=== PATIENT | female | born 1940 | race Caucasian/White ===

== ENCOUNTER 2019-05-24 17:09 | Inpatient (IN) | payer MEDICARE, OTHER ==
[~2019-05-24] VITALS: Ht 175.3 cm; Wt 56.8 kg
--- NOTE | 2019-05-24 17:26 | NUR ---
CAREGIVER: [phone]
[2019-05-24] MEDS ORDERED: ipratropium/albuterol 3ml nebule NEB ONE (17:45)
[2019-05-24] MEDS ORDERED: predniSONE 20 mg tablet PO ONE (17:45)
--- NOTE | 2019-05-24 17:49 | NUR ---
pt. was covered in feces, pt. is being cleaned with soap and water and removing feces in the hands, perineum area.
[2019-05-24] MEDS ORDERED: normal saline 1000ML IV soln IV ONE (18:10)
[2019-05-24 18:16] LABS: BASOPHILS # (AUTO) 0.1 X10'3 (0-0.2); BASOPHILS % (AUTO) 1.1 % (0-1); EOSINOPHILS # (AUTO) 0.1 X10'3 (0-0.9); EOSINOPHILS % (AUTO) 1.4 % (0-6); HEMATOCRIT 22.8 % (35.0-45.0); HEMOGLOBIN 7.7 g/dl (12.0-16.0); LYMPHOCYTES # (AUTO) 1.4 X10'3 (1.1-4.8); MEAN CORPUSCULAR HEMOGLOBIN 27.6 PG (27.0-31.0); MEAN CORPUSCULAR HGB CONC 33.9 g/dL (33.0-36.5); MEAN CORPUSCULAR VOLUME 81.6 FL (78-98); MEAN PLATELET VOLUME 6.9 FL (7.4-10.4); MONOCYTES # (AUTO) 0.3 X10'3 (0-0.9); MONOCYTES % (AUTO) 3.2 % (2-12); NEUTROPHILS # (AUTO) 6.9 X10'3 (1.8-7.7); NEUTROPHILS % (AUTO) 78.3 % (42-75); PLATELET COUNT 346 X10'3 (140-440); RED CELL DISTRIBUTION WIDTH 17.6 % (11.5-14.5); WHITE BLOOD COUNT 8.8 X10'3 (4.5-11.0)
[2019-05-24 18:17] LABS: ALBUMIN 2.3 G/DL (3.4-5.0); ALKALINE PHOSPHATASE 89 IU/L (46-116); ANION GAP 9 (8-16); CALCIUM 7.9 MG/DL (8.5-10.1); CHLORIDE 104 MMOL/L (99-107); CREATININE 1.45 MG/DL (0.40-0.90); POTASSIUM 3.8 MMOL/L (3.5-5.1); SODIUM 141 MMOL/L (135-145); TOTAL CARBON DIOXIDE 27.9 MMOL/L (24-32); eGFR 35 ML/MIN
[2019-05-24 18:21] LABS: ALANINE AMINOTRANSFERASE < 6 U/L (12-78); ALBUMIN/GLOBULIN RATIO 0.4 (1.1-1.5); ASPARTATE AMINO TRANSFERASE 16 U/L (10-37); BILIRUBIN,TOTAL 0.2 MG/DL (0.1-1.0); BLOOD UREA NITROGEN 20 MG/DL (7-18); BUN/CREATININE RATIO 13.8 (6.6-38.0); GLUCOSE 79 MG/DL (70-104); TOTAL PROTEIN 8.1 G/DL (6.4-8.2)
[2019-05-24 18:30] LABS: CLARITY,URINE CLOUDY (Clear); COLOR,URINE AMBER (Yellow); GLUCOSE, URINE NEGATIVE (Neg); KETONES,URINE TRACE mg/dl (Neg); LEUKOCYTE ESTERASE ,URINE SMALL (Neg); NITRITES, URINE POSITIVE (Neg); OCCULT BLOOD,URINE LARGE (Neg); PH,URINE 7.5 (4.8-8.0); PROTEIN,URINE 100 mg/dl (Neg)
[2019-05-24 18:34] LABS: UA COLLECTION TYPE STRAIGHT CATH
[2019-05-24 18:36] LABS: BACTERIA,URINE 4+ /HPF (Neg); RBC,URINE TNTC /HPF (0-2)
[2019-05-24] MEDS ORDERED: CefTRIAXone/D5W-Rocephin 1gm 50 ML IV STA (18:36)
[2019-05-24] MEDS ORDERED: azithromycin/NS 500mg/250ml 250 ML IV STA (18:36)
[2019-05-24 18:37] LABS: AMORPHOUS PHOSPHATES 1+; MUCUS STRANDS FEW /LPF (Neg); SQUAMOUS EPITHELIAL CELL,UR MODERATE /LPF (FEW)
[2019-05-24 18:38] LABS: WBC CLUMPS,URINE FEW /HPF (NEGATIVE)
[2019-05-24] MEDS ORDERED: NO HOME MEDS (19:27)
[2019-05-24] MEDS ORDERED: magnesium hydroxide 30ml (MOM) UD suspension PO PRN (19:55)
[2019-05-24] MEDS ORDERED: ondansetron/PF 4mg/2ml inj IV PRN (19:55)
[2019-05-24] MEDS ORDERED: acetaminophen 325mg tablet PO PRN (19:55)
[2019-05-24] MEDS ORDERED: potassium CL 10mEq/100ml bag 100 ML IV PRN ×2 (19:55)
[2019-05-24] MEDS ORDERED: magnesium 4gm in 100ml NS 100 ML IV PRN (19:55)
[2019-05-24] MEDS ORDERED: potassium Cl 20 mEq SR tablet PO PRN ×2 (19:55)
[2019-05-24] MEDS ORDERED: mag hydrox/Alum hydrox/simeth 30ml oral suspension PO PRN (19:55)
[2019-05-24] MEDS ORDERED: HYDROcodone/acetaminophen 5mg/325mg tablet PO PRN (19:55)
[2019-05-24] MEDS ORDERED: magnesium 2GM in 50ml NS 50 ML IV PRN (19:55)
[2019-05-24] MEDS: K and/or MAG REPLACEMENT MC SCH (20:00)
[2019-05-24] MEDS: heparin, porcine 5000 units/ml vial SQ SCH (20:25)
--- NOTE | 2019-05-24 20:30 | NUR ---
CAREGIVER NAME ALEXANDRIA CALLED TO ASK HOW PT IS DOING. SHE REQUESTED THAT WE TELL THE PATIENT SHE CALLED AND TO CALL HER AT [phone]
--- NOTE | 2019-05-24 21:27 | NUR ---
Patient in room ED 3. I have received report from PAULETTE HERNANDEZ and had the opportunity to ask questions and assume patient care.
[2019-05-25] VITALS (9 sets, daily range): BP systolic 123–163; BP diastolic 65–84
[2019-05-25 05:19] LABS: BASOPHILS % (AUTO) 0.3 % (0-1); EOSINOPHILS % (AUTO) 0.1 % (0-6); LYMPHOCYTES % (AUTO) 7.4 % (21-51); MEAN CORPUSCULAR HEMOGLOBIN 26.7 PG (27.0-31.0); MEAN CORPUSCULAR HGB CONC 32.5 g/dL (33.0-36.5); MEAN CORPUSCULAR VOLUME 82.1 FL (78-98); MEAN PLATELET VOLUME 7.1 FL (7.4-10.4); MONOCYTES # (AUTO) 0.2 X10'3 (0-0.9); MONOCYTES % (AUTO) 1.1 % (2-12); NEUTROPHILS # (AUTO) 12.6 X10'3 (1.8-7.7); NEUTROPHILS % (AUTO) 91.1 % (42-75); PLATELET COUNT 298 X10'3 (140-440); RED BLOOD COUNT 2.45 X10'6 (4.20-5.60); RED CELL DISTRIBUTION WIDTH 17.6 % (11.5-14.5); WHITE BLOOD COUNT 13.8 X10'3 (4.5-11.0)
[2019-05-25 05:30] LABS: HEMOGLOBIN 6.5 g/dl (12.0-16.0)
[2019-05-25 05:31] LABS: HEMATOCRIT 20.1 % (35.0-45.0)
[2019-05-25 05:37] LABS: ALANINE AMINOTRANSFERASE 6 U/L (12-78); ALBUMIN/GLOBULIN RATIO 0.4 (1.1-1.5); ALKALINE PHOSPHATASE 76 IU/L (46-116); ANION GAP 8 (8-16); ASPARTATE AMINO TRANSFERASE 23 U/L (10-37); BILIRUBIN,TOTAL 0.2 MG/DL (0.1-1.0); BLOOD UREA NITROGEN 19 MG/DL (7-18); BUN/CREATININE RATIO 14.1 (6.6-38.0); CALCIUM 7.3 MG/DL (8.5-10.1); CHLORIDE 104 MMOL/L (99-107); CREATININE 1.35 MG/DL (0.40-0.90); MAGNESIUM 1.4 MG/DL (1.5-2.4); POTASSIUM 3.9 MMOL/L (3.5-5.1); SODIUM 137 MMOL/L (135-145); TOTAL CARBON DIOXIDE 24.6 MMOL/L (24-32); TOTAL PROTEIN 7.5 G/DL (6.4-8.2); eGFR 38 ML/MIN
[2019-05-25 05:38] LABS: GLUCOSE 115 MG/DL (70-104)
--- NOTE | 2019-05-25 06:10 | NUR ---
Patient in room [facility]. I have received report from Francesca Harman RN and had the opportunity to ask questions and assume patient care.
--- NOTE | 2019-05-25 06:26 | NUR ---
Problems reprioritized. Patient report given, questions answered & plan of care reviewed with PAULETTE Smiley.
[2019-05-25] MEDS: K and/or MAG REPLACEMENT MC SCH ×2 (06:57→19:53)
[2019-05-25] MEDS ORDERED: levoTHYROXINE 75mcg tablet PO SCH (07:00)
[2019-05-25] MEDS: magnesium Cl slow-release 64mg tablet PO PRN ×2 (08:14→16:55)
[2019-05-25] MEDS: heparin, porcine 5000 units/ml vial SQ SCH ×2 (08:14→20:03)
[2019-05-25] MEDS: predniSONE 5mg tablet PO SCH (08:15)
[2019-05-25] MEDS: CefTRIAXone/D5W-Rocephin 1gm 50 ML IV SCH (08:44)
[2019-05-25] MEDS ORDERED: pneumococcal 23-VAL P-sac vacc 25 mcg/0.5ml vial IMVAC ONE (10:00)
[2019-05-25] MEDS: normal saline 1000ml 1,000 ML IV SCH (16:32)
[2019-05-25 17:19] LABS: % IRON SATURATION 57 % (11-46); IRON 114 UG/DL (49-151); TOTAL IRON BINDING CAPACITY 201 UG/DL (259-388)
[2019-05-25 17:36] LABS: HEMATOCRIT 22.4 % (35.0-45.0); HEMOGLOBIN 7.8 g/dl (12.0-16.0); MEAN CORPUSCULAR HEMOGLOBIN 28.6 PG (27.0-31.0); MEAN CORPUSCULAR HGB CONC 34.7 g/dL (33.0-36.5); MEAN CORPUSCULAR VOLUME 82.5 FL (78-98); MEAN PLATELET VOLUME 7.2 FL (7.4-10.4); PLATELET COUNT 301 X10'3 (140-440); RED BLOOD COUNT 2.72 X10'6 (4.20-5.60); RED CELL DISTRIBUTION WIDTH 16.1 % (11.5-14.5); WHITE BLOOD COUNT 12.1 X10'3 (4.5-11.0)
--- NOTE | 2019-05-25 18:10 | NUR ---
Problems reprioritized. Patient report given, questions answered & plan of care reviewed with PAULETTE Jaeger & PAULETTE Greer.
[2019-05-25] MEDS: lactobacillus rhamnosus 10,000 MMU CELLS/CAPSULE PO SCH (20:01)
[2019-05-26] VITALS: BP 147/66
[2019-05-26 05:28] LABS: BASOPHILS % (AUTO) 0.4 % (0-1); EOSINOPHILS # (AUTO) 0.1 X10'3 (0-0.9); EOSINOPHILS % (AUTO) 1.4 % (0-6); HEMATOCRIT 23.7 % (35.0-45.0); HEMOGLOBIN 8.1 g/dl (12.0-16.0); LYMPHOCYTES # (AUTO) 2.2 X10'3 (1.1-4.8); LYMPHOCYTES % (AUTO) 25.8 % (21-51); MEAN CORPUSCULAR HEMOGLOBIN 28.3 PG (27.0-31.0); MEAN CORPUSCULAR HGB CONC 34.3 g/dL (33.0-36.5); MEAN CORPUSCULAR VOLUME 82.4 FL (78-98); MEAN PLATELET VOLUME 7.2 FL (7.4-10.4); MONOCYTES # (AUTO) 0.4 X10'3 (0-0.9); MONOCYTES % (AUTO) 5.1 % (2-12); NEUTROPHILS # (AUTO) 5.8 X10'3 (1.8-7.7); NEUTROPHILS % (AUTO) 67.3 % (42-75); PLATELET COUNT 308 X10'3 (140-440); RED BLOOD COUNT 2.88 X10'6 (4.20-5.60); RED CELL DISTRIBUTION WIDTH 16.9 % (11.5-14.5); WHITE BLOOD COUNT 8.6 X10'3 (4.5-11.0)
[2019-05-26 05:55] LABS: ALANINE AMINOTRANSFERASE 7 U/L (12-78); ALBUMIN/GLOBULIN RATIO 0.4 (1.1-1.5); ALKALINE PHOSPHATASE 78 IU/L (46-116); ANION GAP 7 (8-16); ASPARTATE AMINO TRANSFERASE 26 U/L (10-37); BILIRUBIN,TOTAL 0.1 MG/DL (0.1-1.0); BLOOD UREA NITROGEN 23 MG/DL (7-18); BUN/CREATININE RATIO 16.3 (6.6-38.0); CALCIUM 7.3 MG/DL (8.5-10.1); CHLORIDE 103 MMOL/L (99-107); CREATININE 1.41 MG/DL (0.40-0.90); MAGNESIUM 1.3 MG/DL (1.5-2.4); POTASSIUM 3.9 MMOL/L (3.5-5.1); SODIUM 135 MMOL/L (135-145); TOTAL CARBON DIOXIDE 24.8 MMOL/L (24-32); TOTAL PROTEIN 7.3 G/DL (6.4-8.2); eGFR 36 ML/MIN
[2019-05-26 05:57] LABS: GLUCOSE 78 MG/DL (70-104)
--- NOTE | 2019-05-26 06:24 | NUR ---
Patient in room [facility] 347. I have received report from PAULETTE Greer and had the opportunity to ask questions and assume patient care.
[2019-05-26 07:00] VITALS: BP 166/89
[2019-05-26] MEDS: K and/or MAG REPLACEMENT MC SCH ×2 (08:00→19:26)
[2019-05-26] MEDS: magnesium Cl slow-release 64mg tablet PO PRN ×2 (08:04→19:25)
[2019-05-26] MEDS: heparin, porcine 5000 units/ml vial SQ SCH ×2 (08:04→19:25)
[2019-05-26] MEDS: CefTRIAXone/D5W-Rocephin 1gm 50 ML IV SCH (08:04)
[2019-05-26] MEDS: predniSONE 5mg tablet PO SCH (08:04)
[2019-05-26] MEDS: lactobacillus rhamnosus 10,000 MMU CELLS/CAPSULE PO SCH ×2 (08:04→19:25)
[2019-05-26] MEDS: levoTHYROXINE 100mcg tablet PO SCH (08:05)
[2019-05-26] MEDS: normal saline 1000ml 1,000 ML IV SCH (10:36)
[2019-05-26 11:14] VITALS: BP 149/75
--- NOTE | 2019-05-26 18:00 | NUR ---
Patient in room [facility] 347. I have received report from Rufina CALDWELL and had the opportunity to ask questions and assume patient care.
--- NOTE | 2019-05-26 18:43 | NUR ---
Problems reprioritized. Patient report given, questions answered & plan of care reviewed with PAULETTE Cagle.
[2019-05-26 20:00] VITALS: BP 150/82
[2019-05-27] VITALS: BP 142/73
[2019-05-27 05:34] LABS: BASOPHILS % (AUTO) 0.4 % (0-1); EOSINOPHILS # (AUTO) 0.2 X10'3 (0-0.9); EOSINOPHILS % (AUTO) 3.1 % (0-6); HEMATOCRIT 25.8 % (35.0-45.0); HEMOGLOBIN 8.7 g/dl (12.0-16.0); LYMPHOCYTES # (AUTO) 2.1 X10'3 (1.1-4.8); LYMPHOCYTES % (AUTO) 40.9 % (21-51); MEAN CORPUSCULAR HEMOGLOBIN 28.3 PG (27.0-31.0); MEAN CORPUSCULAR HGB CONC 33.9 g/dL (33.0-36.5); MEAN CORPUSCULAR VOLUME 83.4 FL (78-98); MEAN PLATELET VOLUME 7.2 FL (7.4-10.4); MONOCYTES # (AUTO) 0.4 X10'3 (0-0.9); MONOCYTES % (AUTO) 6.8 % (2-12); NEUTROPHILS # (AUTO) 2.5 X10'3 (1.8-7.7); NEUTROPHILS % (AUTO) 48.8 % (42-75); PLATELET COUNT 329 X10'3 (140-440); RED BLOOD COUNT 3.09 X10'6 (4.20-5.60); WHITE BLOOD COUNT 5.2 X10'3 (4.5-11.0)
[2019-05-27 05:49] LABS: ALANINE AMINOTRANSFERASE 9 U/L (12-78); ALBUMIN 1.9 G/DL (3.4-5.0); ALBUMIN/GLOBULIN RATIO 0.4 (1.1-1.5); ALKALINE PHOSPHATASE 79 IU/L (46-116); ANION GAP 7 (8-16); ASPARTATE AMINO TRANSFERASE 25 U/L (10-37); BILIRUBIN,TOTAL 0.1 MG/DL (0.1-1.0); BLOOD UREA NITROGEN 20 MG/DL (7-18); BUN/CREATININE RATIO 17.7 (6.6-38.0); CALCIUM 7.3 MG/DL (8.5-10.1); CHLORIDE 103 MMOL/L (99-107); CREATININE 1.13 MG/DL (0.40-0.90); MAGNESIUM 1.5 MG/DL (1.5-2.4); POTASSIUM 3.9 MMOL/L (3.5-5.1); SODIUM 135 MMOL/L (135-145); TOTAL CARBON DIOXIDE 24.6 MMOL/L (24-32); TOTAL PROTEIN 7.2 G/DL (6.4-8.2); eGFR 46 ML/MIN
[2019-05-27 05:53] LABS: GLUCOSE 72 MG/DL (70-104)
--- NOTE | 2019-05-27 06:15 | NUR ---
Problems reprioritized. Patient report given, questions answered & plan of care reviewed with Marcelino RN.
--- NOTE | 2019-05-27 06:30 | NUR ---
Patient in room [facility] 347. I have received report from NELI CALDWELL and had the opportunity to ask questions and assume patient care.
[2019-05-27] MEDS: normal saline 1000ml 1,000 ML IV SCH ×2 (07:55→23:08)
[2019-05-27] MEDS: K and/or MAG REPLACEMENT MC SCH ×2 (08:00→20:00)
[2019-05-27] MEDS: lactobacillus rhamnosus 10,000 MMU CELLS/CAPSULE PO SCH ×2 (08:41→20:58)
[2019-05-27] MEDS: CefTRIAXone/D5W-Rocephin 1gm 50 ML IV SCH (08:42)
[2019-05-27] MEDS: levoTHYROXINE 100mcg tablet PO SCH (08:42)
[2019-05-27] MEDS: predniSONE 5mg tablet PO SCH (08:42)
[2019-05-27] MEDS: heparin, porcine 5000 units/ml vial SQ SCH ×2 (08:46→20:58)
[2019-05-27 10:54] VITALS: BP 154/73
[2019-05-27 11:00] VITALS: BP 158/89
[2019-05-27 18:00] VITALS: BP 165/81
--- NOTE | 2019-05-27 18:25 | NUR ---
Patient in room [facility] 347. I have received report from Marcelino Wilson and had the opportunity to ask questions and assume patient care. Addendum: 05/27/19 at 2303 by Anita Smith RN Amended: Links added.
--- NOTE | 2019-05-27 18:30 | NUR ---
Problems reprioritized. Patient report given, questions answered & plan of care reviewed with COLT CALDWELL.
--- NOTE | 2019-05-27 20:35 | NUR ---
pt awake watching tv denies c/o pain and took hs meds.
--- NOTE | 2019-05-27 22:00 | NUR ---
pt turning self side to side no changes at this time. optifoam to sacrum in place.
--- NOTE | 2019-05-27 23:17 | NUR ---
wicc came loose skin care done and repositioned in bed for comfort and new wicc applied.
[2019-05-28] VITALS: BP 176/76
--- NOTE | 2019-05-28 01:00 | NUR ---
pt resting without s&S of distress at this time.
--- NOTE | 2019-05-28 03:00 | NUR ---
pt resting eyes closed without changes at this time.
--- NOTE | 2019-05-28 05:00 | NUR ---
pt resting awoke briefly positioned to comfort.
[2019-05-28 05:33] LABS: ALANINE AMINOTRANSFERASE 9 U/L (12-78); ALBUMIN/GLOBULIN RATIO 0.4 (1.1-1.5); ALKALINE PHOSPHATASE 78 IU/L (46-116); ANION GAP 6 (8-16); ASPARTATE AMINO TRANSFERASE 25 U/L (10-37); BILIRUBIN,TOTAL 0.1 MG/DL (0.1-1.0); BLOOD UREA NITROGEN 18 MG/DL (7-18); BUN/CREATININE RATIO 16.5 (6.6-38.0); CALCIUM 7.5 MG/DL (8.5-10.1); CHLORIDE 103 MMOL/L (99-107); CREATININE 1.09 MG/DL (0.40-0.90); MAGNESIUM 1.6 MG/DL (1.5-2.4); POTASSIUM 3.9 MMOL/L (3.5-5.1); SODIUM 134 MMOL/L (135-145); TOTAL CARBON DIOXIDE 25.1 MMOL/L (24-32); TOTAL PROTEIN 7.3 G/DL (6.4-8.2); eGFR 48 ML/MIN
[2019-05-28 05:34] LABS: GLUCOSE 72 MG/DL (70-104)
[2019-05-28 05:37] LABS: BASOPHILS % (AUTO) 0.6 % (0-1); EOSINOPHILS # (AUTO) 0.2 X10'3 (0-0.9); EOSINOPHILS % (AUTO) 3.5 % (0-6); HEMATOCRIT 26.5 % (35.0-45.0); HEMOGLOBIN 8.9 g/dl (12.0-16.0); LYMPHOCYTES % (AUTO) 36.1 % (21-51); MEAN CORPUSCULAR HEMOGLOBIN 28.3 PG (27.0-31.0); MEAN CORPUSCULAR HGB CONC 33.7 g/dL (33.0-36.5); MEAN PLATELET VOLUME 6.8 FL (7.4-10.4); MONOCYTES # (AUTO) 0.4 X10'3 (0-0.9); NEUTROPHILS % (AUTO) 52.8 % (42-75); PLATELET COUNT 328 X10'3 (140-440); RED BLOOD COUNT 3.15 X10'6 (4.20-5.60); RED CELL DISTRIBUTION WIDTH 17.4 % (11.5-14.5); WHITE BLOOD COUNT 5.6 X10'3 (4.5-11.0)
--- NOTE | 2019-05-28 06:50 | NUR ---
Problems reprioritized. Patient report given, questions answered & plan of care reviewed with DOT CALDWELL. Addendum: 05/28/19 at 0703 by Anita Smith RN Amended: Links added.
--- NOTE | 2019-05-28 07:11 | NUR ---
Patient in room [facility]. I have received report from Malia CALDWELL and had the opportunity to ask questions and assume patient care.
[2019-05-28 08:00] VITALS: BP 149/66
[2019-05-28] MEDS: K and/or MAG REPLACEMENT MC SCH ×2 (08:00→20:00)
[2019-05-28] MEDS: levoTHYROXINE 100mcg tablet PO SCH (09:02)
[2019-05-28] MEDS: lactobacillus rhamnosus 10,000 MMU CELLS/CAPSULE PO SCH ×2 (09:02→20:41)
[2019-05-28] MEDS: predniSONE 5mg tablet PO SCH (09:03)
[2019-05-28] MEDS: heparin, porcine 5000 units/ml vial SQ SCH ×2 (09:03→20:41)
[2019-05-28] MEDS: CefTRIAXone/D5W-Rocephin 1gm 50 ML IV SCH (09:03)
[2019-05-28 11:00] VITALS: BP 155/76
--- NOTE | 2019-05-28 11:30 | NUR ---
Pt is been assess by wound care to address pt's coccyx wound and long sharp toe nails. Pt is very pleasant and compliant. Pt working with PT as well.
[2019-05-28] MEDS ORDERED: ipratropium/albuterol 3ml nebule NEB PRN (14:20)
--- NOTE | 2019-05-28 15:50 | NUR ---
Per MD note admit with suspected chronic interstitial lung disease, pneumonia, COPD, CKD, UTI with history of hypothyroidism, COPD, Rheumatoid Arthritis. Patient is under[age] for age at [age] however is eating well with great appetite, 75-100% PO average of meals. Patient is followed by [facility] for sacrum red, necrotic unstageable pressure ulcer; per [facility] note pt appears cachetic. Meeting calorie and protein needs considering pneumonia, COPD, and pressure ulcer. In view of patient meeting calorie needs would benefit from Johnathan smoothie twice daily to promote tissue building and wound heal, notified MD. Recommend: 1. continue regular diet 2. Johnathan smoothie twice daily to promote tissue building and wound heal 3. Weight per rx Addendum: 05/28/19 at [address] Amended: Links added.
--- NOTE | 2019-05-28 18:30 | NUR ---
Problems reprioritized. Patient report given, questions answered & plan of care reviewed with Malia CALDWELL.
--- NOTE | 2019-05-28 18:35 | NUR ---
Patient in room [facility] 347. I have received report from DOT CALDWELL and had the opportunity to ask questions and assume patient care. Addendum: 05/28/19 at 2219 by Anita Smith RN Amended: Links added.
[2019-05-28 20:00] VITALS: BP 161/75
[2019-05-28 23:54] VITALS: BP 153/84
[2019-05-29] VITALS: BP 153/84
--- NOTE | 2019-05-29 02:40 | NUR ---
resting eyes closed without changes.
--- NOTE | 2019-05-29 04:47 | NUR ---
pt resting eyes closed wicc in place positioned to comfort.
[2019-05-29 05:16] LABS: BASOPHILS # (AUTO) 0.1 X10'3 (0-0.2); BASOPHILS % (AUTO) 0.9 % (0-1); EOSINOPHILS # (AUTO) 0.2 X10'3 (0-0.9); EOSINOPHILS % (AUTO) 3.2 % (0-6); HEMATOCRIT 25.8 % (35.0-45.0); HEMOGLOBIN 8.8 g/dl (12.0-16.0); LYMPHOCYTES # (AUTO) 2.1 X10'3 (1.1-4.8); LYMPHOCYTES % (AUTO) 35.1 % (21-51); MEAN CORPUSCULAR HEMOGLOBIN 28.8 PG (27.0-31.0); MEAN CORPUSCULAR HGB CONC 34.1 g/dL (33.0-36.5); MEAN CORPUSCULAR VOLUME 84.4 FL (78-98); MEAN PLATELET VOLUME 6.9 FL (7.4-10.4); MONOCYTES # (AUTO) 0.5 X10'3 (0-0.9); MONOCYTES % (AUTO) 8.6 % (2-12); NEUTROPHILS # (AUTO) 3.1 X10'3 (1.8-7.7); NEUTROPHILS % (AUTO) 52.2 % (42-75); PLATELET COUNT 328 X10'3 (140-440); RED BLOOD COUNT 3.06 X10'6 (4.20-5.60); RED CELL DISTRIBUTION WIDTH 17.7 % (11.5-14.5); WHITE BLOOD COUNT 5.9 X10'3 (4.5-11.0)
[2019-05-29 05:45] LABS: ALANINE AMINOTRANSFERASE 9 U/L (12-78); ALBUMIN 2.1 G/DL (3.4-5.0); ALBUMIN/GLOBULIN RATIO 0.4 (1.1-1.5); ALKALINE PHOSPHATASE 75 IU/L (46-116); ANION GAP 6 (8-16); ASPARTATE AMINO TRANSFERASE 26 U/L (10-37); BILIRUBIN,TOTAL 0.1 MG/DL (0.1-1.0); BLOOD UREA NITROGEN 23 MG/DL (7-18); BUN/CREATININE RATIO 21.1 (6.6-38.0); CALCIUM 7.8 MG/DL (8.5-10.1); CHLORIDE 103 MMOL/L (99-107); CREATININE 1.09 MG/DL (0.40-0.90); MAGNESIUM 1.7 MG/DL (1.5-2.4); POTASSIUM 4.3 MMOL/L (3.5-5.1); SODIUM 134 MMOL/L (135-145); TOTAL CARBON DIOXIDE 24.8 MMOL/L (24-32); TOTAL PROTEIN 7.5 G/DL (6.4-8.2); eGFR 48 ML/MIN
[2019-05-29 05:48] LABS: GLUCOSE 77 MG/DL (70-104)
--- NOTE | 2019-05-29 06:45 | NUR ---
Problems reprioritized. Patient report given, questions answered & plan of care reviewed with Stephanie Gee. Addendum: 05/29/19 at 0646 by Anita Smith RN Amended: Links added.
[2019-05-29] MEDS ORDERED: LIDOcaine 4% (40 mg/ml) topical solution 50ml TP ONE (07:00)
--- NOTE | 2019-05-29 07:12 | NUR ---
Patient in room [facility]. I have received report from Malia CALDWELL and had the opportunity to ask questions and assume patient care.
[2019-05-29] MEDS: lactobacillus rhamnosus 10,000 MMU CELLS/CAPSULE PO SCH ×2 (07:55→21:21)
[2019-05-29] MEDS: CefTRIAXone/D5W-Rocephin 1gm 50 ML IV SCH (07:55)
[2019-05-29] MEDS: levoTHYROXINE 100mcg tablet PO SCH (07:55)
[2019-05-29] MEDS: heparin, porcine 5000 units/ml vial SQ SCH ×2 (07:56→20:00)
[2019-05-29 08:00] VITALS: BP 141/71
[2019-05-29] MEDS: K and/or MAG REPLACEMENT MC SCH ×2 (08:00→19:21)
[2019-05-29 11:00] VITALS: BP 147/80
--- NOTE | 2019-05-29 18:15 | NUR ---
Passed on report to start a new IV. Pt refused during the day. IV needs to be changed. Haydee will change and replaced. Addendum: 05/29/19 at 1929 by Selina Tilley RN Amended: Links added.
--- NOTE | 2019-05-29 18:30 | NUR ---
Problems reprioritized. Patient report given, questions answered & plan of care reviewed with Zakiya CALDWELL.
[2019-05-29 19:54] VITALS: BP 116/80
[2019-05-30] VITALS: BP 168/93
[2019-05-30 04:30] VITALS: BP 169/78
--- NOTE | 2019-05-30 06:07 | NUR ---
Problems reprioritized. Patient report given, questions answered & plan of care reviewed with PAULETTE Givens.
[2019-05-30] MEDS: K and/or MAG REPLACEMENT MC SCH (08:00)
--- NOTE | 2019-05-30 10:00 | NUR ---
Reassessment: Pt continues with 75-100% PO intake on regular diet meeting nutrient needs for geriatric age and small stature. [facility] 05/26. D/w dietary to send prunes with next meal to assist with bowel regularity. Pt awaiting placement per MD notes. Will continue to follow and monitor need for further nutrition intervention. Recommend: 1. continue regular diet 2. Johnathan smoothie twice daily to promote tissue building and wound heal; pending MD approval in [facility] 3. Routine bowel care 4. Weight per rx Addendum: 05/30/19 at [address] Amended: Links added.
[2019-05-30] MEDS: CefTRIAXone/D5W-Rocephin 1gm 50 ML IV SCH (10:01)
[2019-05-30] MEDS: heparin, porcine 5000 units/ml vial SQ SCH (10:02)
[2019-05-30] MEDS: levoTHYROXINE 100mcg tablet PO SCH (10:02)
[2019-05-30] MEDS: lactobacillus rhamnosus 10,000 MMU CELLS/CAPSULE PO SCH (10:02)
[2019-05-30 11:00] VITALS: BP 151/91
--- NOTE | 2019-05-30 14:13 | NUR ---
Called to give report to Kumar PATRICK at [facility]. Called Parag- pt's boyfriend per pt. request. Left voicemail- no reply at this time. IV DC'd, pressure bandage applied, no s/sx bleeding noted. All of pt.'s belongings left with pt. Leeanne cargo here to escort pt. to transport vehicle in w/c. Pt. had large BM before transfer.
== END 2019-05-30 14:10 | DRG 689 ==
LOC: ER 17:09 → ED HOLD 19:54 → SUR 3N 21:40
PROVIDERS: ADMIT Internal Medicine; ATTEND Internal Medicine
PROC: 30233N1 Transfusion of Nonautologous Red Blood Cells into Peripheral Vein, Percutaneous Approach (ICD-10-PCS; principal; 2019-05-25)
DX: N39.0 Urinary tract infection, site not specified (principal); J18.9 Pneumonia, unspecified organism; J44.0 Chronic obstructive pulmonary disease with (acute) lower respiratory infection; D72.829 Elevated white blood cell count, unspecified; M06.9 Rheumatoid arthritis, unspecified; N18.9 Chronic kidney disease, unspecified; E03.9 Hypothyroidism, unspecified; Z66 Do not resuscitate; D63.1 Anemia in chronic kidney disease; M19.90 Unspecified osteoarthritis, unspecified site; Z79.890 Hormone replacement therapy; Z87.891 Personal history of nicotine dependence; Z82.49 Family history of ischemic heart disease and other diseases of the circulatory system; Z28.21 Immunization not carried out because of patient refusal
CPT/HCPCS: 36415; 36430; 71045; 73522; 80053; 81001; 83520; 83540; 83550; 83605; 83735; 84145; 84443; 85025; 85027; 86885; 86900; 86901; 86920; 87040; 87081; 87088; 93005; 94640; 94760; 96374; 97110; 97112; 97116; 97163; 97530; 99285; G0378; J0456; J0696; J1644; J7030; J7512; P9016